=== PATIENT | male | born 2000 | race Asian ===

== ENCOUNTER 2025-02-18 08:15 | Outpatient (REF) | payer OTHER, SELFPAY | END 2025-02-18 08:16 | disposition home or self-care (01) | LOC: HO.UMASIMG 08:15 | PROVIDERS: Visit Provider Physician Assistant Medical | DX: Z13.89 Encounter for screening for other disorder (principal) ==

== ENCOUNTER 2025-02-23 06:34 | Outpatient (REF) | payer OTHER, SELFPAY ==
--- NOTE | ~2025-02-23 | US_ITS ---
EXAMINATION: US SOFT TISSUE HEAD AND NECK CLINICAL INFORMATION: Left posterior auricular region lump. COMPARISON: None available. TECHNIQUE: Linear transducer rodriguez-scale and color Doppler examination with attention to the region of the thyroid. FINDINGS: Imaging through the palpable lump left posterior auricular region reveals a hypoechoic/ lesion measuring 0.7 x 1.2 x 0.26 cm with trace color flow on the edges of this lesion. It is most suspicious for a small superficial lymph node. Less likely to consider but differential diagnosis includes lipoma or granuloma. US/US soft tiss head and/or neck IMPRESSION: Nonvascular lesion corresponding to palpable area in the left left posterior auricular space likely a small lymph node. Electronically signed by: Louie Pitt MD 02/24/2025 07:19 AM EDT
== END 2025-02-23 06:35 | disposition home or self-care (01) ==
LOC: HO.UMASIMG 06:34
PROVIDERS: Visit Provider Physician Assistant Medical
DX: R59.9 Enlarged lymph nodes, unspecified (principal)
CPT/HCPCS: 76536

== ENCOUNTER → 2025-02-23 16:01 | Outpatient (BNV) | payer OTHER, SELFPAY | PROVIDERS: Visit Provider Radiology Diagnostic Radiology | DX: R22.0 Localized swelling, mass and lump, head (principal) | CPT/HCPCS: 76536 ==